=== PATIENT | female | born 1995 | race Caucasian/White ===

== ENCOUNTER 2018-05-03 10:25 | Observation (INO) | payer OTHER ==
[2018-05-03] MEDS ORDERED: PREN-96 PO (11:32)
[2018-05-03] MEDS ORDERED: ACET-1156 PO (11:32)
== END 2018-05-03 12:10 | disposition home or self-care (01) | DRG 781 ==
LOC: LDRP 10:25
PROVIDERS: ADMIT Specialist; ATTEND Specialist
DX: O62.9 Abnormality of forces of labor, unspecified (principal); O99.89 Other specified diseases and conditions complicating pregnancy, childbirth and the puerperium; M54.9 Dorsalgia, unspecified; Z3A.39 39 weeks gestation of pregnancy
CPT/HCPCS: 59025; 81002; G0378